=== PATIENT | female | born 1965 | race Caucasian/White ===

== ENCOUNTER → 2019-11-10 | Outpatient (REF) | payer BC, OTHER | LOC: M LAB LCGH 11:41 | PROVIDERS: ATTEND Obstetrics & Gynecology | DX: Z12.4 Encounter for screening for malignant neoplasm of cervix (principal) | CPT/HCPCS: 87624; G0123 ==

== ENCOUNTER → 2025-08-06 | Outpatient (CLI) | payer BC, OTHER ==
[~2025-08-06] MED LIST: CEPH500C
== END ==
LOC: M ONCR 13:03
PROVIDERS: ATTEND General Practice
DX: D47.Z9 Other specified neoplasms of uncertain behavior of lymphoid, hematopoietic and related tissue (principal); R59.0 Localized enlarged lymph nodes; Z80.0 Family history of malignant neoplasm of digestive organs; Z80.42 Family history of malignant neoplasm of prostate
CPT/HCPCS: 10005; 88305; G0463

== ENCOUNTER 2025-08-14 19:25 | Observation (INO) | payer BC, OTHER ==
[~2025-08-14] VITALS: Ht 154.9 cm; Wt 85.0 kg
[2025-08-14 19:45] LABS: BASO # 0.0 10^3/uL (0.0-0.2); BASO % 0.4 % (0.0-1.0); EOS # 0.2 10^3/uL (0.0-0.5); EOS % 2.0 % (0.0-3.0); LYMPH # 3.0 10^3/uL (1.5-5.0); LYMPH % 32.0 % (24.0-44.0); MONO # 0.8 10^3/uL (0.0-0.8); MONO % 8.7 % (2.0-8.0); NEUTROPHILS # 5.3 10^3/uL (1.5-8.5); NEUTROPHILS % 56.6 % (36.0-66.0); PLATELET COUNT, AUTOMATED 281 10^3/uL (150-450)
[2025-08-14 19:57] LABS: INR 0.96
[2025-08-14] MEDS ORDERED: ISOVUE-370 76% 100 ML VIAL As Ordered ONE (19:59)
[2025-08-14] MEDS: NS (Normal Saline) 0.9% 1,000 ML IV ONE (20:00)
[2025-08-14] MEDS: ONDANSETRON 4MG 2ML VIAL IV ONE (20:18)
[2025-08-14 20:24] LABS: ALT/SGPT 27 U/L (7.0-40); AST/SGOT 26 U/L (<34); CALCIUM LEVEL 9.3 MG/DL (8.5-10.1); CARBON DIOXIDE LEVEL 26 MMOL/L (20-31); CHLORIDE LEVEL 104 MMOL/L (98-107); CK-MB VALUE MASS 1.6 NG/ML (<3.6); CPK CREATINE PHOSPHOKINASE 111 U/L (34-145); CREATININE FOR GFR 0.70 MG/DL (0.55-1.30); GLOMERULAR FILTRATION RATE > 90.0 (>51); MAGNESIUM LEVEL 2.2 MG/DL (1.8-2.4); MB/CK RELATIVE INDEX 1.44 (< OR =4); PHOSPHORUS LEVEL 2.8 MG/DL (2.5-4.9); POTASSIUM SERUM 3.8 MMOL/L (3.5-5.1); SODIUM LEVEL 143 MMOL/L (136-145)
[2025-08-14 20:26] LABS: FREE T4 1.27 NG/DL (0.89-1.76); PROLACTIN 26.83 NG/ML
[2025-08-14] MEDS: ACETAMINOPHEN *IV* 1,000 MG in IV 1 EA IV ONE (21:06)
[2025-08-14] MEDS: KETOROLAC 30 MG/ML 1 ML VIAL IV ONE (21:07)
[2025-08-14 21:21] LABS: CK-MB VALUE MASS < 1.0 NG/ML (<3.6)
[2025-08-14 21:23] LABS: CPK CREATINE PHOSPHOKINASE 64 U/L (34-145)
[2025-08-14] MEDS ORDERED: PROHANCE 279.3MG/ML 15ML VIAL As Ordered ONE (22:06)
[2025-08-15] MEDS: ONDANSETRON 4MG 2ML VIAL IV ONE (01:41)
[2025-08-15] MEDS ORDERED: ONDANSETRON 4MG 2ML VIAL IV PRN (02:00)
[2025-08-15] MEDS ORDERED: MOM 30 ML SUSPENSION UDC PO PRN (02:00)
[2025-08-15] MEDS ORDERED: MAALOX 30 ML SUSP *UDC PO PRN (02:00)
[2025-08-15] MEDS ORDERED: ACETAMINOPHEN 325 MG TAB PO PRN (02:00)
[2025-08-15] MEDS ORDERED: TRAM50TA2 PO (02:37)
[2025-08-15] MEDS ORDERED: ACET-683 PO (02:37)
[2025-08-15] MEDS ORDERED: CYCL5TAB4 PO (02:40)
[2025-08-15] MEDS ORDERED: HOME MED LIST COMPLETE! XX SCH (02:45)
[2025-08-15] MEDS: NS (Normal Saline) 0.9% 1,000 ML IV SCH (03:09)
[2025-08-15 03:52] VITALS: BP 134/75; TEMP 98.1; O2SAT 98
[2025-08-15 04:17] VITALS: BP_SYST 105; BP_SYST 122; BP_SYST 128; BP_DIAS 56; BP_DIAS 72; BP_DIAS 74
[2025-08-15 05:08] LABS: AMPHETAMINES LEVEL URINE NEGATIVE (NEGATIVE); BARBITURATES URINE NEGATIVE (NEGATIVE); BENZODIAZEPINES URINE NEGATIVE (NEGATIVE); COCAINE METABOLITE URINE NEGATIVE (NEGATIVE); METHADONE URINE NEGATIVE (NEGATIVE); OPIATES URINE NEGATIVE (NEGATIVE); PHENCYCLIDINE URINE NEGATIVE (NEGATIVE)
[2025-08-15 05:09] LABS: CANNABINOIDS URINE NEGATIVE (NEGATIVE)
[2025-08-15 08:01] VITALS: BP 107/59; TEMP 98.1; O2SAT 98
[2025-08-15 08:23] LABS: BASO # 0.0 10^3/uL (0.0-0.2); BASO % 0.3 % (0.0-1.0); EOS # 0.2 10^3/uL (0.0-0.5); EOS % 2.6 % (0.0-3.0); LYMPH # 1.3 10^3/uL (1.5-5.0); LYMPH % 22.9 % (24.0-44.0); MONO # 0.4 10^3/uL (0.0-0.8); MONO % 7.4 % (2.0-8.0); NEUTROPHILS # 3.9 10^3/uL (1.5-8.5); NEUTROPHILS % 66.6 % (36.0-66.0); PLATELET COUNT, AUTOMATED 215 10^3/uL (150-450)
[2025-08-15 08:56] LABS: CALCIUM LEVEL 8.2 MG/DL (8.5-10.1); CARBON DIOXIDE LEVEL 26 MMOL/L (20-31); CHLORIDE LEVEL 110 MMOL/L (98-107); CREATININE FOR GFR 0.72 MG/DL (0.55-1.30); GLOMERULAR FILTRATION RATE > 90.0 (>51); MAGNESIUM LEVEL 2.0 MG/DL (1.8-2.4); POTASSIUM SERUM 4.0 MMOL/L (3.5-5.1); SODIUM LEVEL 145 MMOL/L (136-145)
[2025-08-15] MEDS ORDERED: ENOXAPARIN 40 MG/0.4 ML SYRINGE (J1650 PER 10MG) SC SCH (09:00)
[2025-08-15 09:38] VITALS: BP 107/59
[2025-08-15] MEDS: MIDODRINE 5 MG TAB PO SCH (09:38)
[2025-08-15] MEDS: NS (Normal Saline) 0.9% 1,000 ML IV ONE (09:38)
[2025-08-15] MEDS ORDERED: OXYC1TAB23 PO (09:45)
[2025-08-15] MEDS ORDERED: CALC-190 PO (09:45)
[2025-08-15] MEDS ORDERED: MIDO5TA PO (09:45)
[2025-08-15] MEDS ORDERED: PERCOCET 5MG/325MG TAB PO PRN (09:55)
[2025-08-15] MEDS: IBUPROFEN 600 MG TAB PO PRN (09:59)
[2025-08-15] MEDS: LR 1,000 ML IV ONE (10:06)
[2025-08-15] MEDS: CALCIUM GLUCONATE 1,000 MG in DEXTROSE 5% (D5W) MINI-BAG PLU 100 ML IV ONE (11:14)
[2025-08-15 12:00] VITALS: BP_SYST 122; BP_SYST 128; BP_SYST 130; BP_DIAS 68; BP_DIAS 70; BP_DIAS 80
== END 2025-08-15 17:23 | disposition home or self-care (01) ==
LOC: M ED 19:25 → M ED INP 08-15 01:57 → M MSPAV 08-15 03:44
PROVIDERS: ADMIT Student in an Organized Health Care Education/Training Program; ATTEND General Practice
DX: T40.425A Adverse effect of tramadol, initial encounter (principal); R41.82 Altered mental status, unspecified; R00.1 Bradycardia, unspecified; R55 Syncope and collapse; D36.12 Benign neoplasm of peripheral nerves and autonomic nervous system, upper limb, including shoulder; G89.29 Other chronic pain; I95.1 Orthostatic hypotension; Z79.899 Other long term (current) drug therapy
CPT/HCPCS: 36415; 70450; 70544; 70551; 71045; 71275; 71552; 80047; 80048; 80076; 80307; 82330; 82550; 82553; 83605; 83690; 83735; 84100; 84146; 84439; 84443; 84484; 85025; 85610; 85730; 86618; 93005; 93041; 93306; 93880; 94760; 96361; 96374; 96375; 96376; 97161; 99285; A9576; J0131; J0612; J1885; J2405; Q9967